=== PATIENT | male | born 1980 | race Caucasian/White ===

== ENCOUNTER 2023-04-20 12:52 | Emergency (ER) | payer OTHER, SELFPAY ==
[2023-04-20 12:58] VITALS: BP 150/92
[2023-04-20 13:12] VITALS: BP 130/94
[2023-04-20 13:16] VITALS: BMI 30.3
[2023-04-20 13:29] LABS: % Basophils 0.4 % (0-2); % Immature Granulocytes 0.2 % (0-0.5); % Lymphocytes 42.9 % (20.5-51.1); % Monocytes 8.8 % (1.7-9.3); % Neutrophils 47.7 % (42.2-75.2); Absolute Lymphocytes 2.1 10^3/uL (1.2-3.4); Absolute Monocytes 0.4 10^3/uL (0.1-0.6); Absolute Neutrophils 2.3 10^3/uL (1.4-6.5); Hematocrit 48.5 % (39.0-52.0); Hemoglobin 16.8 g/dL (13.0-18.0); Mean Corp Hgb Conc. 34.6 g/dL (33.0-37.0); Mean Corpuscular Hgb 31.3 pg (27.0-31.0); Mean Corpuscular Volume 90.3 fL (80.0-94.0); Mean Platelet Volume 10.4 fL (7.4-10.4); Nucleated Red Blood Cells % 0 % (-); Platelet Count 171 10^3/uL (130-400); Red Blood Cell Count 5.37 10^6/uL (4.70-6.10); Red Cell Dist. Width 12.7 % (11.5-14.5); White Blood Cell Count 4.8 10^3/uL (4.8-10.8)
[2023-04-20 13:43] LABS: ALT (SGPT) 354 U/L (0-50); AST (SGOT) 528 U/L (17-59); Alkaline Phosphatase 82 U/L (38-126); Blood Urea Nitrogen 5 mg/dl (9-20); Calcium 8.6 mg/dl (8.4-10.2); Carbon Dioxide 22 mmol/L (22-30); Chloride 111 mmol/L (98-107); Glucose 94 mg/dl (70-99); Magnesium 2.2 mg/dl (1.6-2.3); Potassium 4.1 mmol/L (3.5-5.1); Sodium 146 mmol/L (135-145); Total Bilirubin 0.8 mg/dl (0.2-1.3); Total Protein 7.9 g/dl (6.3-8.2); eGFR > 60.00
[2023-04-20 13:46] LABS: Alcohol 352 mg/dl
[2023-04-20 14:00] VITALS: BP 143/87
--- NOTE | 2023-04-20 14:54 | ED.GENMED ---
History of Present Illness
<Ryan Poe MD - Last Filed: 04/20/23 17:18>
General
Chief Complaint: Alcohol Problem
Source: patient
Exam Limitations: none
Time Seen by Provider: 04/20/23 13:13
Nursing documentation reviewed up to this point in time: agreed with
Travel History
Have you had any contact with someone who has COVID-19?: No
Do you have any symptoms of coronavirus? Fever > 100 degrees, chills, cough, shortness of breath, sore throat, loss of taste or smell, muscle aches, or headache?: No
History of Present Illness
History of Present Illness:
Patient presents to ED secondary to mental status change noted by along with unstable gait, after he came home having had significant alcohol intake with his friends last night. Denies fever or chills. Denies headache. Denies neck pain.
Denies blurred vision. Denies dizziness. Denies chest pain. Denies chest palpitations. Per spouse, patient unfortunately drinks every day, sometimes in increased amounts, and does not eat on a regular basis. Denies loss of consciousness.
Past History
<Ryan Poe MD - Last Filed: 04/20/23 17:18>
Past History
ED Past Medical History: None
ED Past Surgical History: None
Social History
Tobacco: Non-smoker
Personal:
Living: with family
Employment: Employed
Review of Systems
<Ryan Poe MD - Last Filed: 04/20/23 17:18>
Review of Systems
Allergies reviewed?: Yes
All Other Systems: ROS reviewed and negative except as documented in HPI and ROS
Constitutional: Reports no symptoms
EENT: Reports no symptoms
Respiratory: Reports no symptoms
Cardiac: Reports no symptoms
ABD/GI: Reports no symptoms
Musculoskeletal: Reports no symptoms
Skin: Reports no symptoms
Neurological: Reports no symptoms
Phy Exam
<Ryan Poe MD - Last Filed: 04/20/23 17:18>
Physical Exam
Physical Exam:
Physical Exam
General: no apparent distress, not acutely ill. afebrile
Head: eomi. an approx 3cm linear, superficial laceration over left eyebrow, without active bleeding with swelling
Neck: supple. no meningeal signs.
Heart: s1/s2 regular rate and rhythm, no murmur. equal radial pulses.
Lungs: no acute respiratory distress. clear bilaterally
Abdomen: normal bowel sounds. not tender.
Neuro: alert and oriented. no focal neurological deficits
Skin: no rash
Psychiatric: well kept. interactive and cooperative
Extremities: no edema. no calf tenderness
Scores
<Ryan Poe MD - Last Filed: 04/20/23 17:18>
Withdrawal Assessment of Alcohol
Withdrawal Assessment Completed?: Yes
Nausea and Vomiting: No nausea and no vomiting
Tactile Disturbances: None
Tremor: No tremor
Auditory Disturbances: Not present
Paroxysmal Sweats: No sweat visible
Visual Disturbances: Not present
Anxiety: No anxiety, at ease
Headache, Fullness in Head: Not present
Agitation: Normal activity
Orientation and clouding of sensorium: Oriented and can do serial additions
Total CIWA Score: 0
Alcohol Withdrawal Medication Recommendation: Equal to MSAS Score 0-4. Monitor & re-assess q2hrs, NO MEDICATION NEEDED
<Doreen Cash PA-C - Last Filed: 04/21/23 10:04>
Withdrawal Assessment of Alcohol
Total CIWA Score: 0
Alcohol Withdrawal Medication Recommendation: Equal to MSAS Score 0-4. Monitor & re-assess q2hrs, NO MEDICATION NEEDED
Course
<Ryan Poe MD - Last Filed: 04/20/23 17:18>
Orders/Labs/Results
Orders:
Orders
04/20/23 13:13
CT Cervical Spine W/o Iv Contr Urgent
Comment:
Reason For Exam: trauma
Head wo Contrast CT [CT Head W/o Iv Contrast] Urgent
Comment:
Reason For Exam: fall
04/20/23 13:16
EKG [Electrocardiogram (*1)] Urgent
Reason for Study: Shortness of Breath
EKG- Treatment ONCE
04/20/23 13:17
Alcohol Urgent
CBC/With Diff [Complete Blood Count/With Diff] Urgent
Comprehensive Metabolic Panel Urgent
Magnesium Urgent
04/20/23 14:53
0.9% Sodium Chloride 500 ml [Nss] 500 ml IV BOLUS
Abnormal Lab Results
04/20/23
13:17
MCH 31.3 H pg
(27.0-31.0)
Sodium 146 H mmol/L
(135-145)
Chloride 111 H mmol/L
(98-107)
BUN 5 L mg/dl
(9-20)
AST 528 H* U/L
(17-59)
ALT 354 H U/L
(0-50)
04/20/23 13:17
04/20/23 13:17
Vital Signs
Initial and Last Documented VS:
Initial Vital Signs
Temp Pulse Resp BP Pulse Ox
97.9 F 79 18 150/92 93
04/20/23 12:58 04/20/23 12:58 04/20/23 12:58 04/20/23 12:58 04/20/23 12:58
Last Documented Vital Signs
Temp Pulse Resp BP Pulse Ox
97.9 F 87 15 130/85 98
04/20/23 12:58 04/20/23 16:00 04/20/23 16:00 04/20/23 16:00 04/20/23 16:00
<Fabio M. Sánchez, DO - Last Filed: 04/20/23 15:19>
Orders/Labs/Results
Orders:
Orders
04/20/23 13:13
CT Cervical Spine W/o Iv Contr Urgent
Comment:
Reason For Exam: trauma
Head wo Contrast CT [CT Head W/o Iv Contrast] Urgent
Comment:
Reason For Exam: fall
04/20/23 13:16
EKG [Electrocardiogram (*1)] Urgent
Reason for Study: Shortness of Breath
EKG- Treatment ONCE
04/20/23 13:17
Alcohol Urgent
CBC/With Diff [Complete Blood Count/With Diff] Urgent
Comprehensive Metabolic Panel Urgent
Magnesium Urgent
04/20/23 14:53
0.9% Sodium Chloride 500 ml [Nss] 500 ml IV BOLUS
Abnormal Lab Results
04/20/23
13:17
MCH 31.3 H pg
(27.0-31.0)
Sodium 146 H mmol/L
(135-145)
Chloride 111 H mmol/L
(98-107)
BUN 5 L mg/dl
(9-20)
AST 528 H* U/L
(17-59)
ALT 354 H U/L
(0-50)
04/20/23 13:17
04/20/23 13:17
Vital Signs
Initial and Last Documented VS:
Initial Vital Signs
Temp Pulse Resp BP Pulse Ox
97.9 F 79 18 150/92 93
04/20/23 12:58 04/20/23 12:58 04/20/23 12:58 04/20/23 12:58 04/20/23 12:58
Last Documented Vital Signs
Temp Pulse Resp BP Pulse Ox
97.9 F 87 15 130/85 98
04/20/23 12:58 04/20/23 16:00 04/20/23 16:00 04/20/23 16:00 04/20/23 16:00
<Doreen Cash PA-C - Last Filed: 04/21/23 10:04>
Orders/Labs/Results
Orders:
Orders
04/20/23 13:13
CT Cervical Spine W/o Iv Contr Urgent
Comment:
Reason For Exam: trauma
Head wo Contrast CT [CT Head W/o Iv Contrast] Urgent
Comment:
Reason For Exam: fall
04/20/23 13:16
EKG [Electrocardiogram (*1)] Urgent
Reason for Study: Shortness of Breath
EKG- Treatment ONCE
04/20/23 13:17
Alcohol Urgent
CBC/With Diff [Complete Blood Count/With Diff] Urgent
Comprehensive Metabolic Panel Urgent
Magnesium Urgent
04/20/23 14:53
0.9% Sodium Chloride 500 ml [Nss] 500 ml IV BOLUS
Abnormal Lab Results
04/20/23
13:17
MCH 31.3 H pg
(27.0-31.0)
Sodium 146 H mmol/L
(135-145)
Chloride 111 H mmol/L
(98-107)
BUN 5 L mg/dl
(9-20)
AST 528 H* U/L
(17-59)
ALT 354 H U/L
(0-50)
04/20/23 13:17
04/20/23 13:17
Vital Signs
Initial and Last Documented VS:
Initial Vital Signs
Temp Pulse Resp BP Pulse Ox
97.9 F 79 18 150/92 93
04/20/23 12:58 04/20/23 12:58 04/20/23 12:58 04/20/23 12:58 04/20/23 12:58
Last Documented Vital Signs
Temp Pulse Resp BP Pulse Ox
97.9 F 87 15 130/85 98
04/20/23 12:58 04/20/23 16:00 04/20/23 16:00 04/20/23 16:00 04/20/23 16:00
<Doreen Cash PA-C - Last Filed: 04/21/23 10:04>
Laceration Closure
Left Eye brow:
Status of Wound: clean
Size of Wound in cm: 3
Description of Wound Edges: sharp
Preparation: cleaned with saline and cleaned with Betadine
Anesthesia: 1% Lidocaine with epi
Revision/Debridement: routine- no revision
Wound exploration: explored to base- no FB
Type of Closure: interrupted sutures
Skin Closure Material: 6-0 nylon
Number of sutures: 5
<Ryan Poe MD - Last Filed: 04/20/23 17:18>
MDM/Problems Addressed
MDM/Problems Addressed:
CT head/C-spine: no acute findings.
Patient remains hemodynamically stable and neurologically intact. Discussed inpatient alcohol detox, which patient adamantly refused. As such, patient will be given outpatient resources. Abnormal liver function test reviewed with patient and
family. Advised alcohol cessation as well as GI follow-up as an outpatient. Patient given IV fluids. Patient will be tested for stability in terms of ambulation, prior to discharge.
<Ryan Poe MD - Last Filed: 04/20/23 17:18>
*Critical Care Note
Total Time (30-74mins, 75-104mins- exclusive of procedures): Not Applicable
<Fabio Sánchez DO - Last Filed: 04/20/23 15:19>
Update Note
Update Note:
3:20 PM care of patient was transitioned ambulation after fluids. Patient has a history of alcohol abuse and was clinically intoxicated on arrival. Nursing staff indicating that patient is ambulating back and forth to the bathroom without
complications. Per signout, patient stable for discharge if ambulating well.
ED Attending Note
<Ryan Poe MD - Last Filed: 04/20/23 17:18>
-
Portions of this chart may have been created with voice recognition software.� Occasional wrong word or��sound alike� substitutions may have occurred due to the inherent limitations of voice recognition software.
Discharge Plan
Departure
Patient Disposition: Home (Routine Discharge)
Date of Disposition: 04/20/23
Time of Disposition: 15:17
Patient with high blood pressure during this ER visit?: Yes
Discharge Problem:
Alcohol use disorder, Transaminitis
Instructions: Alcohol Use Disorder (DC)
Prescriptions:
No Action
No Current Medications
0
Referrals:
Alexa Padilla MD [Active] -
NONE,* [Family Provider] -
Activity Restrictions/Additional Instructions:
Please return for any worsening symptoms.
You may return at any time if you have further concerns.
Please follow up with your doctor at the first available appointment, preferably this week.
Please make an appointment with the cane flume watcher to evaluate your liver enzymes.
Thank you for choosing [facility].
Interventions
Interventions:
*Risk Screen - Suicide Last Done: 04/20/23 13:03
*General Assessment Last Done: 04/20/23 13:03
*Neglect/Abuse Screening Last Done: 04/20/23 13:03
ED- Fall Risk Assessment Last Done: 04/20/23 13:45
*ED COVID-19 Vaccine History Last Done: 04/20/23 13:17
*Nursing Disposition Last Done: 04/20/23 16:12
ED-Skin Assessment Last Done: 04/20/23 13:45
ED- Pulmonary Assessment Last Done: 04/20/23 13:46
ED-Psychological Assessment Last Done: 04/20/23 13:47
ED- Neurological Assessment Last Done: 04/20/23 13:45
ED- Cardiac Assessment Last Done: 04/20/23 13:46
ED Swallowing Screen Last Done: 04/20/23 14:00
Discharge Date and Time
Discharge Date/Time: 04/20/23 16:15
[2023-04-20 15:00] VITALS: BP 154/95
[2023-04-20] MEDS: NSS 500 IV (15:01)
[2023-04-20 16:00] VITALS: BP 130/85
== END 2023-04-20 16:15 | disposition home or self-care (01) ==
LOC: EMR 12:52
PROVIDERS: Emergency Medicine; EMERGENCY PHYSICIAN Emergency Medicine
DX: F10.129 Alcohol abuse with intoxication, unspecified (principal); R74.01 Elevation of levels of liver transaminase levels; S01.112A Laceration without foreign body of left eyelid and periocular area, initial encounter; W19.XXXA Unspecified fall, initial encounter; R03.0 Elevated blood-pressure reading, without diagnosis of hypertension
CPT/HCPCS: 99285; 12013; 70450; 72125; 80053; 82077; 83735; 85025; 93005